=== PATIENT | male | born 1945 | race Caucasian/White ===

== ENCOUNTER 2017-04-02 08:01 | Day surgery (SDC) | payer MEDICARE ==
[2017-04-02] MEDS ORDERED: fentaNYL 100 MCG/2 ML SDV ONE (08:21)
[2017-04-02] MEDS ORDERED: Propofol 200 MG/20 ML SDV ONE (08:21)
[2017-04-02] MEDS ORDERED: Midazolam 1 MG/ML 2 ML SDV ONE (08:21)
[2017-04-02] MEDS ORDERED: Sodium Chloride 0.9% 1,000 ML IV SCH (08:30)
--- NOTE | 2017-04-02 15:44 | OR ---
DATE OF PROCEDURE: 04/02/2017 PROCEDURE: Colonoscopy. FINDINGS: 1. Normal colonoscopy. 2. Normal anastomosis. COMPLICATIONS: None. GLASS HANDLER: None. ANESTHESIA: MAC. PREOPERATIVE DIAGNOSIS: History of colon resection/screening colonoscopy. POSTOPERATIVE DIAGNOSIS: History of colon resection/screening colonoscopy. RISKS: Risks, benefits, alternatives, and limitations including, but not limited to infection, bleeding, and perforation were explained to the patient, they wished to proceed. PROCEDURE IN DETAIL: The patient was placed in left lateral decubitus position. Digital rectal exam was performed without abnormality. The scope was introduced and advanced atraumatically to the area of the ileocecal valve. The anastomosis between the small and large bowel was normal. No evidence of masses, polyps, or inflammation. The scope was brought back to the remainder of the colon. No abnormalities were noted. No abnormalities on retroflexion. The patient tolerated the procedure well. Chauncey Daley MD /[id number]
== END 2017-04-02 10:40 | disposition home or self-care (01) ==
LOC: JP.SDS 08:01
PROVIDERS: ATTEND Surgery
DX: Z12.11 Encounter for screening for malignant neoplasm of colon (principal); Z86.010 Personal history of colon polyps
CPT/HCPCS: G0105; J2250; J2704; J3010; J7040

== ENCOUNTER 2018-02-15 11:45 | Emergency (ER) | payer BC, MEDICARE ==
[2018-02-15] MEDS ORDERED: HYDROmorphone 1 MG/ML Syringe IVPUSH ONE (11:55)
--- NOTE | 2018-02-15 13:03 | CR ---
Pelvis right hip There is a mildly displaced intertrochanteric fracture of the hip. The pelvic structures appear intact. Impression: 1. Intertrochanteric fracture.
--- NOTE | 2018-02-15 13:05 | EDM.PDOC ---
ED HPI GENERAL MEDICAL PROBLEM - General Chief Complaint: Lower Extremity Injury/Pain Stated Complaint: FALL VIA NORTH Time Seen by Provider: 02/15/18 11:56 Source of Information: Reports: Patient, Family, RN Notes Reviewed History Limitations: Reports: No Limitations - History of Present Illness INITIAL COMMENTS - FREE TEXT/NARRATIVE: 72-year-old gentleman presents to the emergency department today following a fall on ice he landed on his right hip, he is experiencing pain and difficulty with movement of that right hip. Right Hip Pain Score (Numeric/FACES): 3 - Related Data Allergies Allergy/AdvReac Type Severity Reaction Status Date / Time aspirin [From [place]] Allergy Facial Verified 02/15/18 12:12 Swelling citric acid Allergy Facial Verified 02/15/18 12:12 [From [place]] Swelling sodium bicarbonate Allergy Facial Verified 02/15/18 12:12 [From [place]] Swelling Home Meds: Home Meds NK [No Known Home Meds] 03/31/17 [History] Past Medical History HEENT History: Reports: Cataract, Impaired Vision Other HEENT History: wears glasses Gastrointestinal History: Reports: Colon Polyp Musculoskeletal History: Reports: Arthritis, Back Pain, Chronic Endocrine/Metabolic History: Reports: Obesity/BMI 30+, Other (See Below) Other Endocrine/Metabolic History: goiter Dermatologic History: Reports: Seborrheic Dermatitis - Infectious Disease History Infectious Disease History: Reports: Chicken Pox, Measles, Mononucleosis, Rheumatic Fever - Past Surgical History HEENT Surgical History: Reports: Tonsillectomy GI Surgical History: Reports: Colon, Colonoscopy, EGD, Other (See Below) Other GI Surgeries/Procedures: colon resection Endocrine Surgical History: Reports: Thyroid Biopsy Musculoskeletal Surgical History: Reports: Arthroscopic Knee Social & Family History - Family History Oncologic: Reports: Lung - Tobacco Use Smoking Status *Q: Never Smoker - Caffeine Use Caffeine Use: Reports: None - Recreational Drug Use Recreational Drug Use: No Review of Systems - Review of Systems Review Of Systems: See Below Musculoskeletal: Reports: Joint Pain (Right hip pain) Skin: Reports: No Symptoms Neurological: Reports: No Symptoms ED EXAM, GENERAL - Physical Exam Exam: See Below Free Text/Narrative:: Mild bruising is appreciated over the right hip it is tender to palpation over the greater trochanter will not tolerate any flexion extension or internal/ external rotation of that hip Respiratory/Chest: No Respiratory Distress Course - Vital Signs Last Recorded V/S: Last Vital Signs Temp 99.0 F 02/15/18 12:25 Pulse 87 02/15/18 12:25 Resp 16 02/15/18 12:25 BP 141/67 H 02/15/18 12:25 Pulse Ox 97 02/15/18 12:25 - Orders/Labs/Meds Meds: Medications Discontinued Medications Generic Name Dose Route Start Last Admin Trade Name Pablo PRN Reason Stop Dose Admin Hydromorphone HCl 1 mg 02/15/18 11:55 02/15/18 12:05 Dilaudid IVPUSH 02/15/18 11:56 1 mg ONETIME ONE Administration Departure - Departure Time of Disposition: 13:26 Disposition: DC/Tfer to Acute Hospital 02 Condition: Fair Clinical Impression: Displaced fracture of right femoral neck - Discharge Information Referrals: Danie Sherman MD [Primary Care Provider] - Forms: ED Department Discharge - Assessment/Plan Plan: Assessment Acuity = acute Site and laterality = right femoral neck fracture Etiology = secondary to fall Manifestations = pain Location of injury = Home Lab values = x-ray describes fracture listed above Plan Called discussed case with Dr. Hopson hospitalist production corrugator at [facility] kindly accepted the patient in transport, with consultation from Dr. Barcenas orthopedic surgeon, will be transported via EMS ground, he has received 100 g of fentanyl and 1 mg of Dilaudid This note was dictated using [employer] voice recognition software please call with any questions on syntax or grammar.
[2018-02-15] MEDS ORDERED: HYDROmorphone 1 MG/ML Syringe IM ONE (13:38)
== END 2018-02-15 14:04 ==
LOC: JP.ED 11:45
DX: S72.001A Fracture of unspecified part of neck of right femur, initial encounter for closed fracture (principal); Z88.8 Allergy status to other drugs, medicaments and biological substances; W00.0XXA Fall on same level due to ice and snow, initial encounter
CPT/HCPCS: 73502; 96372; 96374; 99285; J1170; 99283